=== PATIENT | male | born 1995 | race Caucasian/White ===

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

== ENCOUNTER 2017-01-18 10:15 | Emergency (ER) | payer OTHER ==
[2017-01-18] MEDS ORDERED: TETRACAINE HCL 150 DROP BTL ONE (10:54)
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
[2017-01-18 12:05] VITALS: BP 138/86
== END 2017-01-18 12:09 | disposition home or self-care (01) ==
LOC: ER 10:15
DX: T65.893A Toxic effect of other specified substances, assault, initial encounter (principal); Y92.810 Car as the place of occurrence of the external cause

== ENCOUNTER 2017-04-01 16:52 | Emergency (ER) | payer OTHER ==
--- NOTE | 2017-04-01 17:48 | ERNOTE ---
Integumentary HPI - Narrative Date of Service: 04/01/17 - General Presenting Symptoms: abscess Time Seen by Provider: 04/01/17 17:43 Source: patient Exam Limitations: no limitations - Immun/Allergies/Home Medications Immunizations: IMMUNIZATION HX Immunizations Up to Date Yes History of Influenza Vaccine No Hx Pneumococcal Vaccination No Allergies/Adverse Reactions: Allergies Allergy/AdvReac Type Severity Reaction Status Date / Time No Known Drug Allergies Allergy Unknown Verified 01/18/17 10:27 Home Medications: HOME MEDICATIONS Albuterol Sulfate/Ipratropium [Duoneb 2.5-0.5MG/3ML Soln] 3 ml IH QID #150 vial 11/05/16 [Last Taken Unknown] Albuterol Sulfate [Proair Hfa] 1 - 2 puff IH Q4H PRN 12/04/16 [Last Taken Unknown] Albuterol Sulfate/Ipratropium [Duoneb 2.5-0.5MG/3ML Soln] 3 ml IH PRN PRN [Last Taken Unknown] Cephalexin Monohydrate [Keflex] 500 mg PO QID 10 Days #40 cap 04/01/17 [Last Taken Unknown] Sulfamethoxazole/Trimethoprim [Bactrim Ds] 1 tab PO BID #20 tab 04/01/17 [Last Taken Unknown] - History of Present Illness Narrative: patient states that he has what he thought was a "zit: in the corner of his eye that has progressively gotten worse. he has tried warm compresses and baking soda compresses for the last few days to assist with draining. patient states that this morning it has gotten sig worse, painful and swelling. Date (Duration): 04/01/17 Location: Reports: facial Quality: Reports: painful, burning Severity: moderate Exposure: Reports: no cause identified Modifying Factors - (Improves): Reports: nothing Modifying Factors - (Worsens): Reports: nothing Associated Symptoms: Reports: change in skin texture, swelling/mass/lumps, edema , fever Review of Systems - Review of Systems Constitutional: Present: See HPI, fever EYE: Present: see HPI, eye pain, eye discharge ENT: Present: See HPI Respiratory: Present: no symptoms reported Cardiology: Present: no symptoms reported Gastrointestinal/Abdominal: Present: no symptoms reported Genitourinary: Present: no symptoms reported Musculoskeletal: Present: no symptoms reported Skin: Present: See HPI, lesions, lumps, change in color Neurological: Present: no symptoms reported Endocrine: Present: no symptoms reported Hematologic/Lymphatic: Present: no symptoms reported Psych: Present: no symptoms reported All Other Systems: All systems neg except as marked - Patient's Past Medical History Patient History - Medical: ADHD, Depression, Migraines, Other Patient History - Cardiac/Respiratory: Asthma Patient History - Cancer: No Hx of Cancer Patient History - Surgical Procedures: Ear Tubes, T & A, Other Patient History - Other: None - Family History Mother Family History - Medical: Diabetes Type 2 Family History - Cardiac/Respiratory: Asthma, CVA/Stroke, Hypertension, Hyperlipidemia, Other Father Family History - Medical: Diabetes Type 2 Family History - Cardiac/Respiratory: Hypertension - Social History Abuse History: No History of abuse Psych History: Hx of Depression Smoking Status: Current every day smoker Patient requests Smoking Cessation Consult: No Initiate information on Smoking Cessation: No - Immunizations Immunizations Up to Date: Yes Hx Pneumococcal Vaccination: No History of Influenza Vaccine: No Physical Exam - Physical Exam General Appearance: Present: wd/wn, alert, no apparent distress Head Exam: Present: no tenderness w palpation, swelling, tenderness Eye Exam: Normal inspection: left, PERRL: bilateral, EOMI: bilateral, Eye drainage: left, Eyelid inflammation: left Ears, Nose, Throat: Present: normal except - - swollen red leasion to the right side of his nose/inner eyelid, normal pharynx Neck: Present: normal inspection, nontender, supple, full range of motion Respiratory: Present: no respiratory distress, normal breath sounds, no accessory muscle use, chest nontender, lungs clear Cardiovascular/Chest: Present: regular rate, rhythm, no murmur, normal peripheral pulses Gastrointestinal/Abdominal: Present: normal bowel sounds, nontender, nondistended, soft, no organomegaly Back Exam: Present: normal inspection, normal range of motion, no CVA tenderness , no vertebral tenderness Extremity Exam: Present: normal inspection, non-tender, normal range of motion, no edema Neurological Exam: Present: alert, oriented, normal mood/affect, no motor/ sensory deficits Skin Exam: Present: normal color, warm/dry Lymphatic Exam: Present: no adenopathy ED Progress - Vital Signs Patient's Vital Signs:: I have reviewed the patient's vital signs. Vital Signs: Vital Signs 04/01/17 17:33 Temperature 37.0 C Pulse Rate 76 Respiratory 18 Rate Blood Pressure 123/79 O2 Sat by Pulse 98 Oximetry - Progress/Reassessment Chief Complaint: Abscess Plan - Plan Plan: Dr maguire to see patient r/t proximity of abscess next to his eye. she performed I&D of area. Departure Clinical Impression: Abscess - Departure Disposition: Home Follow Up Needed Condition: Stable Instructions: Abscess, [id number], Incision and Drainage Additional Instructions: Start antibiotics tonight. Taken with food. Continue to do warm compresses to the affected area. Return to the emergency room tomorrow for a wound check at 12:00. He went up in the morning MA wound has grown in size or has gotten worse please call Dr. Maguire office and make an appointment to be seen. Referrals: Zina Maguire MD [Staff Physician] - Prescriptions: Cephalexin Monohydrate [Keflex] 500 mg PO QID 10 Days #40 cap Sulfamethoxazole/Trimethoprim [Bactrim Ds] 1 tab PO BID #20 tab
[2017-04-01] MEDS ORDERED: KETOROLAC TROMETHAMINE 60 MG/2 ML VIAL IM ONE ×2 (18:46→18:52)
[2017-04-01 19:03] VITALS: BP 124/61
== END 2017-04-01 19:15 | disposition home or self-care (01) ==
LOC: ER 16:52
DX: J34.0 Abscess, furuncle and carbuncle of nose (principal); F17.200 Nicotine dependence, unspecified, uncomplicated

== ENCOUNTER 2017-04-02 12:02 | Emergency (ER) | payer OTHER ==
--- NOTE | 2017-04-02 12:27 | ERNOTE ---
Integumentary HPI - Narrative Date of Service: 04/02/17 - General Presenting Symptoms: abscess Time Seen by Provider: 04/02/17 12:21 Source: patient Exam Limitations: no limitations - Immun/Allergies/Home Medications Immunizations: IMMUNIZATION HX Immunizations Up to Date Yes History of Influenza Vaccine No Hx Pneumococcal Vaccination No Allergies/Adverse Reactions: Allergies Allergy/AdvReac Type Severity Reaction Status Date / Time No Known Drug Allergies Allergy Unknown Verified 01/18/17 10:27 Home Medications: HOME MEDICATIONS Albuterol Sulfate/Ipratropium [Duoneb 2.5-0.5MG/3ML Soln] 3 ml IH QID #150 vial 11/05/16 [Last Taken Unknown] Albuterol Sulfate [Proair Hfa] 1 - 2 puff IH Q4H PRN 12/04/16 [Last Taken Unknown] Albuterol Sulfate/Ipratropium [Duoneb 2.5-0.5MG/3ML Soln] 3 ml IH PRN PRN [Last Taken Unknown] Cephalexin Monohydrate [Keflex] 500 mg PO QID 10 Days #40 cap 04/01/17 [Last Taken Unknown] Sulfamethoxazole/Trimethoprim [Bactrim Ds] 1 tab PO BID #20 tab 04/01/17 [Last Taken Unknown] - Pain Pain Score: 0 - History of Present Illness Narrative: The patient is returning for a wound check after he had an I&D last night. Wound appears to be improving. Infectious appears to be improving. Patient is able to open his eye out away today. He states he is tolerating antibiotics. He states he is feeling better. Date (Duration): 04/02/17 Location: Reports: facial Exposure: Reports: other - picked at a "zit" Associated Symptoms: Reports: swelling/mass/lumps Review of Systems - Review of Systems Constitutional: Present: no symptoms reported EYE: Present: see HPI ENT: Present: See HPI Respiratory: Present: no symptoms reported Cardiology: Present: no symptoms reported Gastrointestinal/Abdominal: Present: no symptoms reported Genitourinary: Present: no symptoms reported Musculoskeletal: Present: no symptoms reported Skin: Present: See HPI, lesions, change in color Neurological: Present: no symptoms reported Endocrine: Present: no symptoms reported Hematologic/Lymphatic: Present: no symptoms reported Psych: Present: no symptoms reported All Other Systems: All systems neg except as marked - Patient's Past Medical History Patient History - Medical: ADHD, Depression, Migraines, Other Patient History - Cardiac/Respiratory: Asthma Patient History - Cancer: No Hx of Cancer Patient History - Surgical Procedures: Ear Tubes, T & A, Other Patient History - Other: None - Family History Mother Family History - Medical: Diabetes Type 2 Family History - Cardiac/Respiratory: Asthma, CVA/Stroke, Hypertension, Hyperlipidemia, Other Father Family History - Medical: Diabetes Type 2 Family History - Cardiac/Respiratory: Hypertension - Social History Abuse History: No History of abuse Psych History: Hx of Depression - Immunizations Immunizations Up to Date: Yes Hx Pneumococcal Vaccination: No History of Influenza Vaccine: No Physical Exam - Physical Exam Narrative: infection to lateral nose appears to be improving, decreased redness and swelling from 04/01/17. patient able to open his eye and states the visual obstruction has decreased. General Appearance: Present: wd/wn, alert, no apparent distress Head Exam: Present: normal inspection, tenderness Eye Exam: Normal inspection: bilateral, PERRL: bilateral Ears, Nose, Throat: Present: normal except - - for abscess on side of nose. this abscess has improved since 04/01/17 Neck: Present: normal inspection, nontender, supple, full range of motion Respiratory: Present: no respiratory distress, normal breath sounds, no accessory muscle use, chest nontender, lungs clear Cardiovascular/Chest: Present: regular rate, rhythm, no murmur, normal peripheral pulses Gastrointestinal/Abdominal: Present: normal bowel sounds, nontender, nondistended, soft, no organomegaly Back Exam: Present: normal inspection, normal range of motion, no CVA tenderness , no vertebral tenderness Extremity Exam: Present: normal inspection, non-tender, normal range of motion, no edema Neurological Exam: Present: alert, oriented, normal mood/affect, no motor/ sensory deficits Skin Exam: Present: normal color, warm/dry, other - see note Lymphatic Exam: Present: no adenopathy ED Progress - Vital Signs Patient's Vital Signs:: I have reviewed the patient's vital signs. - Progress/Reassessment Progress:: Improved Plan - Plan Plan: patient is to continue po abx. he will be updated with culture when it is available. patient is to return to ER if s/s do not continue improve. patient also given ENT information if needed to make a follow apt. Departure Clinical Impression: Abscess - Departure Disposition: Home self-care Condition: Stable Instructions: Abscess, [id number] Additional Instructions: Continue your prescribed antibiotics as directed. Infection appears to be improving. Continue your hot or warm compresses at least 3 times a day to the area. Return to the emergency room if signs and symptoms of infection become worse.
[2017-04-02 12:28] VITALS: BP 112/79
== END 2017-04-02 12:30 | disposition home or self-care (01) ==
LOC: ER 12:02
DX: J34.0 Abscess, furuncle and carbuncle of nose (principal)